=== PATIENT | female | born 1990 | race Caucasian/White ===

== ENCOUNTER 2017-10-30 15:48 | Emergency (ER) | payer MEDICAID, SELFPAY ==
[2017-10-30 15:49] VITALS: BP 134/77; PULSE 112; RESP 16; TEMP 37.2; O2SAT 99; BMI 19.1
--- NOTE | 2017-10-30 16:09 | ED.DCSUM_ITS ---
- ER Visit Summary Date of Service: 10/30/17 Chief Complaint: Sore throat and nausea History of Present Illness: The patient is a 27 F with sore throat and nausea for the past 2 days. Patient states it feels like prior bouts of strep throat. She has no known exposure to strep throat. She denies fever. She denies possibility of with a history of tubal ligation. Physical Examination: Vital signs reveal blood pressure of 134/77, temperature 99.0, heart rate 112, respiratory rate 16, pulse ox 99% on room air. Patient sitting in the lin chair. She is in no acute distress and speaks with a strong voice. Head neck examination does reveal 3+ tonsils. No exudate is noted. Uvula is midline. She does have bilateral anterior cervical lymphadenopathy. Heart is regular rate and rhythm. Lung sounds are clear. Abdomen is soft nontender. Test Results: Rapid strep is positive Emergency Department Course and Treatment: Patient has elected for IM injection of antibiotics. Should be given Bicillin LA. She is cleared to return to work 24 hours after antibiotics. Treatment Plan: [] Disposition: Discharge Impression: Strep pharyngitis This note was generated with [employer] dictation software. It may contain incorrect words, spelling, and punctuation that were not noted in review of the chart prior to signing ED Disposition - Plan for ED Patient: Chief Complaint: Sore Throat Referrals: NOT,DEFINED [NON-STAFF] -
[2017-10-30] MEDS: Ondansetron ODT 4 MG Tablet PO (16:34)
[2017-10-30] MEDS: Naproxen 500 MG Tablet PO (16:34)
--- NOTE | 2017-10-30 16:49 | ED.RN ---
RICCI, FROM LAB CALLED, PT HAS POSITIVE STREP. NOTE LEFT FOR DR. BRANDON.
--- NOTE | 2017-10-30 17:17 | ED.DEP ---
ED Disposition - Plan for ED Patient: Disposition: Home or Assisted Living Chief Complaint: Sore Throat Instructions: ED Strep Pharyngitis Conf Prescriptions: Ondansetron [Zofran Odt] 4 mg PO Q8H PRN PRN #10 tablet PRN Reason: Nausea
[2017-10-30] MEDS: Penicillin G Benzathine 1.2 MU/2 ML Syringe IM (17:25)
[2017-10-30 17:26] VITALS: BP 108/79; PULSE 62; RESP 15; O2SAT 98
== END 2017-10-30 17:28 | disposition home or self-care (01) ==
PROVIDERS: Emergency Provider Emergency Medicine
DX: J02.0 Streptococcal pharyngitis (principal)
CPT/HCPCS: 87880; 99283

== ENCOUNTER 2018-09-28 13:19 | Observation (INO) | payer SELFPAY ==
[2018-09-28] VITALS (8 sets, daily range): BP systolic 107–129; BP diastolic 67–82; PULSE 98–122; RESP 16–20; TEMP 36.4–39.3; O2SAT 98–100; BMI 21.2; BMI 21.1
--- NOTE | 2018-09-28 12:15 | APP_PTH ---
PATIENT: BRITNEY TYSON LOC: [facility]3 U#:[id number] AGE/SX: 27/F ROOM: [facility]313 RE09/28/[address]: Dr. Holland Bowen MD : 1990 BED: 1 DIS: 09/29/2018 SPEC #: [id number] RECD: 09/29/18 07:21 STATUS: DINORA SNIDER #: [id number] DIANELYS: 09/28/18 12:[address]: Holland Bowen DEPT: SURGICAL PATHOLOGY RECD BY: Mohsen Lin ENTERED: 09/29/18 09:36 SP TYPE: APPENDIX OTHR DR: No Primary Care Phys Tissues: Appendix, NOS Procedures: Surgery Specimen Level III HEADER OPERATION: Laparoscopic, appendectomy PRE-OP DIAGNOSIS: Sepsis right lower quadrant pain TISSUE SUBMITTED: Appendix MICROSCOPIC DIAGNOSIS Appendix: Appendix, no pathologic diagnosis. See comment. ZARA:leobardo 10/01/18 COMMENT The entire appendix is examined. No evidence of acute inflammation in the lumen or appendicular wall. MICROSCOPIC DESCRIPTION Slides are reviewed. GROSS DESCRIPTION Received is one container labeled with the patient's name and designated appendix. The specimen consists of a vermiform appendix measuring 5.5 cm in length and 0.4 cm in average diameter. No gross perforations are evident and serial sections do not reveal mass lesions. Enrollment Clerk sections are submitted in one cassette. / AM:rg 09/29/18 The rest of the specimen is submitted in one more cassette, cassette #2. / SJ:leobardo 09/30/18 TC:4 CPT: 64833
--- NOTE | 2018-09-28 13:48 | CT_ITS ---
STUDY: CT ABDOMEN AND PELVIS WITH CONTRAST REASON FOR EXAM: Female, 27 years old. Right sided pain RADIATION DOSAGE (If Supplied By Facility): CTDIvol = ( 8.40 ) mGy, DLP = ( 350.29 ) mGycm TECHNIQUE: Transaxial images were obtained from the dome of the diaphragm to the symphysis pubis without oral contrast. Isovue 300 80 IV was administered. Sagittal and coronal images were reconstructed. Individualized dose optimization techniques were used for this CT. COMPARISON: None. FINDINGS: The visualized lung bases are unremarkable. The visualized portions of the heart are within normal limits. Normal liver. Normal gallbladder and extrahepatic biliary system. Normal spleen. Normal pancreas. Normal bilateral adrenal glands. There is a questionable cortical 1.5 cm subtle hypoattenuated area within the posterior cortex of the right kidney. Normal left kidney. Normal visualized stomach. Normal small intestine. Fecal retention in the proximal colon. The appendix is visualized and appears normal. Normal abdominal aorta. Normal inferior vena cava. Normal retroperitoneum. Possible trace fluid in the Morison's pouch. Normal urinary bladder. Endometrial thickening/fluid in the uterus. Left adnexal 2.6 cm cystic lesion. Trace pelvic free fluid. Small fatty umbilical hernia. Normal osseous structures. CT/Abdomen/Pelvis W IV Cont ONLY IMPRESSION: Fecal retention in the proximal colon. Small fatty umbilical hernia. Left adnexal cystic lesion. Questionable subtle right renal cortical lesion. Correlate with a ultrasound if clinically indicated. Trace pelvic fluid. Trace fluid in the Caballero's pouch. Electronically Signed: Sean Holden DO at 15:35 EDT Tel [phone], Service support ,
--- NOTE | 2018-09-28 13:49 | ED.VISSUMM ---
- ER Visit Summary Date of Service: 09/28/18 Chief Complaint: Abdominal pain History of Present Illness: The patient is a 27 F with history of x3, tubal ligation, presents with 12-16 hours of right lower quadrant abdominal pain with nausea and one episode of vomiting. She has no vaginal discharge, no bleeding. She has no dyspareunia. Her last menstrual cycle was 2 days ago. She denies any fever chills or back pain. She has no dysuria hematuria urgency or frequency. She denies any chest pain shortness of breath. Pain is mild to moderate, sharp and stabbing in the right lower quadrant. Physical Examination: Vitals reviewed, tachycardic Patient appears in some distress.. Moist mucous membranes, no obvious facial deformity No C-spine tenderness supple neck. Regular rate and rhythm without any obvious murmurs Clear lungs bilaterally speaking in full sentences without any obvious respiratory distress Abdomen soft with right lower quadrant tenderness. Most of the pain is at McBurney's. There is no guarding or rebound Pelvic exam reveals no discharge, there is no cervical motion tenderness. Most the tenderness is higher than the adnexa, although she has slight adnexal tenderness. Moves all extremities without any difficulty or pain. Skin does not show any obvious rashes or lesions, no trauma. Alert oriented ?3 with no gross focal deficit Emergency Department Course and Treatment: There is difficult to assess clinically if this was pelvic or abdominal etiology, based on exam it seems like most of the pain is higher than the adnexa near the appendix region. I will proceed with a CT of the abdomen, there is possibility of PID as well as ovarian torsion or ovarian cyst, however at this time I believe the most probable cause is appendicitis, she does not appear in significant distress and does not have significant tenderness when I palpate her ovary on the exam. The CT was unremarkable for the appendix, however in reviewing it this may be an appendicolith present and patient was reevaluated and has pain at McBurney's. Discussed patient with Dr. Bowen, she requests hospital surgeon she has a PCP, and patient will be observed in the hospital. Antibiotics will be started and patient will get a repeat CT in the morning with p.o. and IV contrast Disposition: Admit for observation Impression: Abdominal pain This note was generated with [employer] dictation software. It may contain incorrect words, spelling, and punctuation that were not noted in review of the chart prior to signing ED Disposition - Plan for ED Patient: Referrals: Care Physician,No Primary [Primary Care Provider] -
[2018-09-28 13:58] LABS: Absolute Lymphocyte Count 1.14 X10^3/ul (0.83-4.51); Absolute Neutrophil Count 11.8 X10^3/uL (2.0-7.7); Basophil# 0.02 X10^3/uL; Basophil% 0.1 % (0-1); Eosinophil# 0.09 X10^3/uL; Eosinophils% 0.6 % (0-5); Hematocrit 31.9 % (37-47); Hemoglobin 10.2 g/dl (12.0-15.0); Lymphocyte # 1.14 X10^3/ul (4.0); Lymphocyte % 7.9 % (19-41); Mean Corpuscular Hgb 25.5 pg (27.0-32.0); Mean Corpuscular Volume 79.8 fL (81-99); Mean Platelet Vol. 12.1 fl (6.2-12.0); Monocyte# 1.32 X10^3/uL; Monocyte% 9.2 % (0-10); Neutrophil # 11.76 X10^3/uL (2.7-7.7); POSITIVE COUNT NO; POSITIVE DIFFERENTIAL NO; POSITIVE MORPHOLOGY NO; Platelet Count 292 K/mm3 (150-450); RBC Distribution Width CV 18.7 % (11.6-14.6); RBC Distribution Width SD 53.3 fl (35.1-43.9); White Blood Count 14.4 K/mm3 (4.4-11.0)
[2018-09-28 14:09] LABS: ALB/GLOB Ratio 0.9 RATIO (0.9-2.4); AST(SGOT) 10 U/L (15-37); Alanine Aminotransfer ALT/SGPT 15 U/L (13-56); Albumin, Serum 3.5 g/dL (3.2-5.0); Alkaline Phosphatase 76 U/L (45-117); Anion Gap 8 (5-15); BUN 7 mg/dL (7-18); BUN/Creat Ratio 9.4 RATIO (10-20); Calcium,Total 8.2 mg/dL (8.5-10.1); Chloride 106 mmol/L (98-107); Creatinine, Serum 0.75 mg/dL (0.55-1.02); EST Glomerular Filtration Rate 99 mL/min (>60); Est Glom Filt Rate - Afr Amer 120 mL/min (>60); Estimated Creatinine Clearance 106.41 ml/min; Glucose 102 mg/dL (74-106); Potassium 3.7 mmol/L (3.5-5.1); Protein, Total 7.5 g/dL (6.4-8.2); Sodium Level 136 mmol/L (136-145)
[2018-09-28] MEDS: Ondansetron 4 MG/2 ML Vial IV ×2 (14:14→22:25)
[2018-09-28] MEDS: 0.9% Normal Saline 1,000 ML 1000 ML IV (14:14)
[2018-09-28] MEDS: Morphine 4 MG/ML Syringe IV (14:14)
[2018-09-28 14:18] LABS: Pregnancy, Serum, hCG Quali. NEGATIVE Negative (0-9 Nonpreg)
[2018-09-28 15:00] LABS: Mucous, Urine 0 SEEN /hpf (<or=2+)
[2018-09-28 15:01] LABS: Color, Urine Yellow (Yellow); Glucose, Dipstick Normal (Normal); Ketone-Dipstick Negative (Negative); Leukocyte Esterase-Dipstick 500 /ul (Negative); Nitrite-Dipstick Positive (Negative); Occult Blood-Urine 25 /ul (Negative); Protein-Dipstick 100 mg/dl (Negative); Urine Bilirubin Dipstick Negative (Negative); Urine Clarity Sl. Cloudy (Clear); Urine Urobilinogen Normal (Normal)
[2018-09-28 15:15] LABS: White Blood Cells 50-100 SEEN /hpf (0-5)
[2018-09-28 15:16] LABS: Amorphous Sediment 1+ URATE; Bacteria 1+ /hpf (None Seen); Red Blood Cells-Urine 5-10 SEEN /hpf (0-5); Squamous Epithelial Cells - UA 5-10 SEEN /hpf (5-10)
--- NOTE | 2018-09-28 15:59 | NURSING ---
MED SURG UTI, POSSIBLE APPENDICITIS [facility]
--- NOTE | 2018-09-28 16:01 | HP.PCM_ITS ---
Problem List (1) UTI (urinary tract infection) Status: Acute Qualifiers: Urinary tract infection type: site unspecified (2) Appendicitis Status: Acute Qualifiers: Appendicitis type: unspecified Qualified Code(s): K37 - Unspecified appendicitis History of Present Illness Date of Admission: 09/28/18 The patient is a 27 year old F presented to ER with right lower quadrant pain. This started last night. Pain is only RLQ, no dysuria. She has had nausea and vomitting. No fever or chills. Past Medical History Allergies No Known Allergies Allergy (Verified 09/28/18 13:20) Home Medications: Ambulatory Orders Medication Instructions Recorded NK 09/28/18 Surgical History: - - C section x3 Smoking Status: Current every day smoker - *Family History Maternal History Items: No pertinent history Review of Systems Constitutional: Reports: Anorexia. Denies: Chills, Fever HEENT: Denies: Difficulty Swallowing Cardiovascular: Denies: Chest Pain Respiratory: Denies: Cough, Shortness of Breath Gastrointestinal: Reports: Abdominal Pain - RLQ, Nausea, Vomiting Genitourinary: Denies: Dysuria, Hematuria, Hesitancy Musculoskeletal: Denies: Joint Tenderness Skin: Denies: Dryness Neurological: Denies: Difficulty swallowing Psychiatric: Denies: Anxiety Hematologic/ Lymphatic: Denies: Anemia VTE Information - Inpt Only VTE Present on Admission: No VTE Mechan Device Prophylaxis: SCD's Patient Problems: Active and Suspected Problems UTI (urinary tract infection) (Acute) Appendicitis (Acute) - Physical Exam General: Alert, Oriented x3, Cooperative Neck: No JVD Lungs: Normal air movement Cardiovascular: Regular rate, Regular Rhythm Abdomen: Soft, Non-Distended, Tender - RLQ tender to palpation, no guarding Musculoskeletal: No Muscle Wasting Neurological: Cranial nerves II-XII grossly intact Psych/Mental Status: Normal Affect Vital Signs Temp Pulse Resp BP Pulse Ox 99.9 F H 105 H 16 129/82 H 100 09/28/18 15:38 09/28/18 15:38 09/28/18 15:38 09/28/18 15:38 09/28/18 15:38 Oxygen Delivery Method Room Air Weight: 131 lb 9.855 oz Body Mass Index (BMI) 21.2 Laboratory Tests Past 24 Hrs 09/28/18 09/28/18 09/28/18 13:35 13:35 13:35 WBC 14.4 H RBC 4.00 L Hgb 10.2 L Hct 31.9 L MCV 79.8 L MCH 25.5 L MCHC 32.0 RDW 18.7 H RDW Differential 53.3 H Plt Count 292 MPV 12.1 H Immature Gran % (Auto) 0.200 Neut % (Auto) 82.0 H Lymph % (Auto) 7.9 L [place] % (Auto) 9.2 Eos % (Auto) 0.6 Baso % (Auto) 0.1 Absolute Neuts (auto) 11.8 H Absolute Lymphs (auto) 1.14 Total Counted Not Reportable Sodium 136 Potassium 3.7 Chloride 106 Carbon Dioxide 22.0 Anion Gap 8 BUN 7 Creatinine 0.75 Estim Creat Clear Calc 106.41 Est GFR (MDRD) Af Amer 120 Est GFR (MDRD) Non-Af 99 BUN/Creatinine Ratio 9.4 L Glucose 102 Calcium 8.2 L Total Bilirubin 0.50 AST 10 L ALT 15 Alkaline Phosphatase 76 Total Protein 7.5 Albumin 3.5 Globulin 4.0 Albumin/Globulin Ratio 0.9 Serum , Qual NEGATIVE Urine Color Urine Clarity Urine pH Ur Specific [place] Urine Protein Urine Glucose (UA) Urine Ketones Urine Occult Blood Urine Nitrite Urine Bilirubin Urine Urobilinogen Ur Leukocyte Esterase Urine RBC Urine WBC Ur Squamous Epith Cells Amorphous Sediment Urine Bacteria Urine Mucus 09/28/18 14:50 WBC RBC Hgb Hct MCV MCH MCHC RDW RDW Differential Plt Count MPV Immature Gran % (Auto) Neut % (Auto) Lymph % (Auto) [place] % (Auto) Eos % (Auto) Baso % (Auto) Absolute Neuts (auto) Absolute Lymphs (auto) Total Counted Sodium Potassium Chloride Carbon Dioxide Anion Gap BUN Creatinine Estim Creat Clear Calc Est GFR (MDRD) Af Amer Est GFR (MDRD) Non-Af BUN/Creatinine Ratio Glucose Calcium Total Bilirubin AST ALT Alkaline Phosphatase Total Protein Albumin Globulin Albumin/Globulin Ratio Serum , Qual Urine Color Yellow Urine Clarity Sl. Cloudy Urine pH 6.0 Ur Specific [place] 1.010 Urine Protein 100 H Urine Glucose (UA) Normal Urine Ketones Negative Urine Occult Blood 25 H Urine Nitrite Positive H Urine Bilirubin Negative Urine Urobilinogen Normal Ur Leukocyte Esterase 500 H Urine RBC 5-10 SEEN Urine WBC 50-100 SEEN Ur Squamous Epith Cells 5-10 SEEN Amorphous Sediment 1+ URATE Urine Bacteria 1+ Urine Mucus 0 SEEN Clinical Impression(s) from Imaging Studies Abdomen/Pelvis CT 09/28/18 13:48 IMPRESSION: Fecal retention in the proximal colon. Small fatty umbilical hernia. Left adnexal cystic lesion. Questionable subtle right renal cortical lesion. Correlate with a ultrasound if clinically indicated. Trace pelvic fluid. Trace fluid in the Caballero's pouch. Electronically Signed: Sean Holden DO at 15:35 EDT Tel [phone], Service support , Assessment/Plan All Active Problems UTI (urinary tract infection) (Acute) Appendicitis (Acute) 27 yo F with RLQ pain 1. Patient has story consistent with acute appendicitis. CT was read as normal appendix but I believe I see an appendicolith and fluid filled appendix. UA did show leuk est and nitrites but was contaminated with Epi cells. I will admit the patient on abx in case this is a UTI but the patient has no symptoms of UTI. Will repeat CT with PO contrast in the morning and take to surgery tomorrow if CT worsens. Holland Bowen MD
[2018-09-28] MEDS: Morphine 2 MG/ML Syringe IV ×3 (17:19→22:33)
[2018-09-28] MEDS: Dextrose 5%-Lactated Ringers 1,000 ML 125 ML IV (19:00)
[2018-09-28] MEDS: Docusate Sodium 100 MG Capsule PO (22:13)
[2018-09-28] MEDS: Acetaminophen 325 MG Tablet 650 MG PO (22:52)
--- NOTE | 2018-09-28 23:09 | PCM.PN.BLA ---
Progress Note I was called to the bedside due to the patient's vital signs. Patient still complaining of right abdominal 10 out of 10 pain. She is now febrile at 103 degrees and tachycardic at 122. I believe she is either having a torsed ovary or acute appendicitis. I did consent her for exploratory laparoscopy with possible oophorectomy and either way I will be performing an appendectomy. Patient understands the risks including but not limited to bleeding, infection, perforation of the bowels, injury to surrounding organs. I have called the operative team in for laparoscopy. Holland Bowen MD Pager: [facility] [address] [place] [address], [address] [place] [address] Office:
--- NOTE | 2018-09-28 23:55 | NURSING ---
Hand off given to Georgina in OR. They are ready for pt. Charge nurse Fely leaving floor at this time taking pt to OR.
[2018-09-29] VITALS (10 sets, daily range): BP systolic 96–112; BP diastolic 51–73; PULSE 75–115; RESP 16–18; TEMP 36.5–37.4; O2SAT 97–99
[2018-09-29 00:05] LABS: International Normalized Ratio 1.2; Prothrombin Time (Protime)PT. 15.1 SECONDS (11.7-14.9)
[2018-09-29 00:06] LABS: Partial Thromboplast Time 41.5 Seconds (24.1-36.2)
[2018-09-29] MEDS: Bupiv/Epi 0.25% 30 ML Vial (00:30)
--- NOTE | 2018-09-29 00:55 | PCM.PN.BLA ---
Progress Note Patient was taken to surgery for exploratory laparoscopy. Patient's ovary appeared normal with no torsion. Fluid in the pelvis was serous with no purulence. Appendix appeared normal and was removed. Gallbladder appeared normal as well. Bowels were appeared normal. I will keep her on antibiotics and start clear liquid diet. Await blood and urine cultures. Check morning labs. Holland Bowen MD Pager: [facility] [address] [place] [address], [address] [place] [address] Office:
--- NOTE | 2018-09-29 00:59 | OP.PCM_ITS ---
Problem List (1) UTI (urinary tract infection) Status: Acute Qualifiers: Urinary tract infection type: site unspecified (2) Appendicitis Status: Acute Qualifiers: Appendicitis type: unspecified Qualified Code(s): K37 - Unspecified appendicitis Report of Operation Date of Procedure: 09/29/18 Pre-Operative Diagnosis: Right lower quadrant pain and sepsis Post-Operative Diagnosis: 1. Normal right ovary. 2. Normal appendix. 3. Normal bowel Surgery/Procedure Performed:: Exploratory laparoscopy with appendectomy Description of Surgical Findings:: The patient had normal-appearing right ovary as well as normal-appearing appendix. The bowel appeared normal as did the gallbladder. Specimen's removed: Appendix Description of Procedure: The patient was brought into the operating room and general anesthesia was induced. The left arm was tucked and the abdomen was prepped and draped in usual sterile fashion. A small midline incision was made superior to the umbilicus and deepened to the level of the fascia. The fascia was elevated and incised. The peritoneum was also elevated and incised. A finger sweep was performed and a balloon trocar was placed into the abdomen and inflated. The abdomen was insufflated to 15 mmHg and the camera was inserted and the abdomen was inspected for any injuries upon entering the abdomen. There were none. The patient was placed in Trendelenburg position and a 5 mm ports placed in the left lower quadrant and suprapubic areas under direct visualization. Next using atraumatic bowel graspers the appendix was identified. The appendix appeared normal. The right ovary was inspected and there was no element of torsion and it appeared healthy and normal. Fluid was suctioned from the pelvis which was serous with no purulence. The uterus and bladder appeared normal. The bowel also appeared normal. The appendix was grasped and elevated and a harmonic scalpel was used to take down the mesoappendix. A stapler was used to come across the base of the appendix. The appendix was then placed in Endo Catch bag and removed through the umbilical incision. The staple line was inspected and found to be hemostatic and intact. The 2 5 mm ports are removed under direct visualization. The balloon trocar was deflated and removed and all the air was removed from the abdomen. The umbilical incision fascia was closed with an 0 Vicryl [id number] suture. The incisions were then irrigated with saline and dried. Local anesthetic was injected into the incision sites. The skin incisions were then closed with interrupted 4-0 Monocryl suture and Steri- Strips. Bandages were applied and the patient was awoken and taken to PACU in stable condition. Patient tolerated the procedure well. - Admit VTE Documentation VTE Mechan Device Prophylaxis: SCD's
--- NOTE | 2018-09-29 01:15 | NURSING ---
Dr Bowen presented to unit to report surgery findings. Lactic acid ordered by and advised to monitor vitals. Did not feel the need for a CXR at this time. To notify Dr if SBP <90. Continue zosyn.
[2018-09-29 02:23] LABS: Lactic Acid 0.8 mmol/L (0.4-2.0)
[2018-09-29] MEDS: Dextrose 5%-Lactated Ringers 1,000 ML 125 ML IV ×2 (03:42→11:35)
[2018-09-29] MEDS: Ketorolac 15 MG/ML Vial IV ×2 (05:45→13:14)
[2018-09-29] MEDS: 0.9% NaCl Peripheral Flush Adult/Peds IV ×2 (05:45→13:14)
[2018-09-29 06:35] LABS: ALB/GLOB Ratio 0.9 RATIO (0.9-2.4); AST(SGOT) 29 U/L (15-37); Alanine Aminotransfer ALT/SGPT 31 U/L (13-56); Alkaline Phosphatase 84 U/L (45-117); Anion Gap 12 (5-15); BUN 6 mg/dL (7-18); BUN/Creat Ratio 6.3 RATIO (10-20); Calcium,Total 7.7 mg/dL (8.5-10.1); Chloride 112 mmol/L (98-107); Creatinine, Serum 0.95 mg/dL (0.55-1.02); EST Glomerular Filtration Rate 75 mL/min (>60); Est Glom Filt Rate - Afr Amer 91 mL/min (>60); Estimated Creatinine Clearance 84.01 ml/min; Globulin 3.5 g/dL (2.2-4.2); Glucose 173 mg/dL (74-106); Potassium 4.4 mmol/L (3.5-5.1); Protein, Total 6.5 g/dL (6.4-8.2); Sodium Level 141 mmol/L (136-145)
[2018-09-29 06:45] LABS: Absolute Lymphocyte Count 0.59 X10^3/ul (0.83-4.51); Absolute Neutrophil Count 13.1 X10^3/uL (2.0-7.7); Basophil# 0.01 X10^3/uL; Basophil% 0.1 % (0-1); Hematocrit 30.8 % (37-47); Hemoglobin 9.5 g/dl (12.0-15.0); Lymphocyte # 0.59 X10^3/ul (4.0); Lymphocyte % 4.2 % (19-41); Mean Corp Hgb Conc 30.8 g/gl (32-36); Mean Corpuscular Hgb 24.9 pg (27.0-32.0); Mean Corpuscular Volume 80.8 fL (81-99); Mean Platelet Vol. 12.6 fl (6.2-12.0); Monocyte# 0.32 X10^3/uL; Monocyte% 2.3 % (0-10); Neutrophil # 13.12 X10^3/uL (2.7-7.7); Neutrophil % 93.2 % (47-70); Platelet Count 255 K/mm3 (150-450); RBC Distribution Width CV 19.2 % (11.6-14.6); Red Blood Count 3.81 M/mm3 (4.2-5.4); White Blood Count 14.1 K/mm3 (4.4-11.0)
[2018-09-29 06:51] LABS: Differential Indicated SCAN CRITERIA MET; POSITIVE COUNT NO; POSITIVE DIFFERENTIAL YES; POSITIVE MORPHOLOGY NO
--- NOTE | 2018-09-29 08:30 | PN.SURG_ITS ---
Patient Problems: Active and Suspected Problems UTI (urinary tract infection) (Acute) Appendicitis (Acute) Subjective: Patient today reports that she is having some slight left lower quadrant pain. Her right lower quadrant pain has improved. She is not having any nausea or vomiting. Her fever has broken. - Physical Exam General: Alert, Oriented x3 Lungs: Normal air movement Cardiovascular: Regular rate, Regular Rhythm Abdomen: Soft, Non-Distended Vital Signs Temp Pulse Resp BP Pulse Ox 97.7 F L 80 18 96/57 L 98 09/29/18 05:45 09/29/18 05:45 09/29/18 05:45 09/29/18 05:45 09/29/18 05:45 Oxygen Delivery Method Room Air Weight: 131 lb 9.855 oz Body Mass Index (BMI) 21.1 Intake and Output for Last 24 Hours 09/27/18 09/28/18 09/29/18 22:59 23:59 23:59 Intake Total 1637 / 1637 Output Total 700 / 700 Balance 937 / 937 Laboratory Tests Past 24 Hrs 09/28/18 09/28/18 09/28/18 13:35 13:35 13:35 WBC 14.4 H RBC 4.00 L Hgb 10.2 L Hct 31.9 L MCV 79.8 L MCH 25.5 L MCHC 32.0 RDW 18.7 H RDW Differential 53.3 H Plt Count 292 MPV 12.1 H Immature Gran % (Auto) 0.200 Neut % (Auto) 82.0 H Lymph % (Auto) 7.9 L [place] % (Auto) 9.2 Eos % (Auto) 0.6 Baso % (Auto) 0.1 Absolute Neuts (auto) 11.8 H Absolute Lymphs (auto) 1.14 Total Counted Not Reportable PT INR APTT Sodium 136 Potassium 3.7 Chloride 106 Carbon Dioxide 22.0 Anion Gap 8 BUN 7 Creatinine 0.75 Estim Creat Clear Calc 106.41 Est GFR (MDRD) Af Amer 120 Est GFR (MDRD) Non-Af 99 BUN/Creatinine Ratio 9.4 L Glucose 102 Lactic Acid Calcium 8.2 L Total Bilirubin 0.50 AST 10 L ALT 15 Alkaline Phosphatase 76 Total Protein 7.5 Albumin 3.5 Globulin 4.0 Albumin/Globulin Ratio 0.9 Serum , Qual NEGATIVE Urine Color Urine Clarity Urine pH Ur Specific [place] Urine Protein Urine Glucose (UA) Urine Ketones Urine Occult Blood Urine Nitrite Urine Bilirubin Urine Urobilinogen Ur Leukocyte Esterase Urine RBC Urine WBC Ur Squamous Epith Cells Amorphous Sediment Urine Bacteria Urine Mucus 09/28/18 09/28/18 09/29/18 14:50 23:40 01:46 WBC RBC Hgb Hct MCV MCH MCHC RDW RDW Differential Plt Count MPV Immature Gran % (Auto) Neut % (Auto) Lymph % (Auto) [place] % (Auto) Eos % (Auto) Baso % (Auto) Absolute Neuts (auto) Absolute Lymphs (auto) Total Counted PT 15.1 H INR 1.2 APTT 41.5 H Sodium Potassium Chloride Carbon Dioxide Anion Gap BUN Creatinine Estim Creat Clear Calc Est GFR (MDRD) Af Amer Est GFR (MDRD) Non-Af BUN/Creatinine Ratio Glucose Lactic Acid 0.8 Calcium Total Bilirubin AST ALT Alkaline Phosphatase Total Protein Albumin Globulin Albumin/Globulin Ratio Serum , Qual Urine Color Yellow Urine Clarity Sl. Cloudy Urine pH 6.0 Ur Specific [place] 1.010 Urine Protein 100 H Urine Glucose (UA) Normal Urine Ketones Negative Urine Occult Blood 25 H Urine Nitrite Positive H Urine Bilirubin Negative Urine Urobilinogen Normal Ur Leukocyte Esterase 500 H Urine RBC 5-10 SEEN Urine WBC 50-100 SEEN Ur Squamous Epith Cells 5-10 SEEN Amorphous Sediment 1+ URATE Urine Bacteria 1+ Urine Mucus 0 SEEN 09/29/18 09/29/18 05:32 05:32 WBC 14.1 H RBC 3.81 L Hgb 9.5 L Hct 30.8 L MCV 80.8 L MCH 24.9 L MCHC 30.8 L RDW 19.2 H RDW Differential 54.0 H Plt Count 255 MPV 12.6 H Immature Gran % (Auto) 0.200 Neut % (Auto) 93.2 H Lymph % (Auto) 4.2 L [place] % (Auto) 2.3 Eos % (Auto) 0.0 Baso % (Auto) 0.1 Absolute Neuts (auto) 13.1 H Absolute Lymphs (auto) 0.59 L Total Counted Not Reportable PT INR APTT Sodium 141 Potassium 4.4 Chloride 112 H Carbon Dioxide 17.0 L Anion Gap 12 BUN 6 L Creatinine 0.95 Estim Creat Clear Calc 84.01 Est GFR (MDRD) Af Amer 91 Est GFR (MDRD) Non-Af 75 BUN/Creatinine Ratio 6.3 L Glucose 173 H Lactic Acid Calcium 7.7 L Total Bilirubin 0.50 AST 29 ALT 31 Alkaline Phosphatase 84 Total Protein 6.5 Albumin 3.0 L Globulin 3.5 Albumin/Globulin Ratio 0.9 Serum , Qual Urine Color Urine Clarity Urine pH Ur Specific [place] Urine Protein Urine Glucose (UA) Urine Ketones Urine Occult Blood Urine Nitrite Urine Bilirubin Urine Urobilinogen Ur Leukocyte Esterase Urine RBC Urine WBC Ur Squamous Epith Cells Amorphous Sediment Urine Bacteria Urine Mucus Medical Necessity - Tobacco Use Smoking Status: Heavy Smoker (>10/day) Assessment/Plan All Active Problems UTI (urinary tract infection) (Acute) Appendicitis (Acute) 27-year-old female status post lap appendectomy 1. Patient was taken for laparoscopy overnight. Her ovary and appendix was normal but I did remove her appendix. The patient was continued on antibiotics and her fever has broken. She no longer has tachycardia. She says her right lower quadrant pain has improved. This may be related to UTI. Continue antibiotics and advance diet as tolerated. Holland Bowen MD Pager: [facility] [address] [place] [address], [address] [place] [address] Office:
[2018-09-29] MEDS: Acetaminophen 325 MG Tablet 650 MG PO (09:25)
[2018-09-29] MEDS: Docusate Sodium 100 MG Capsule PO (09:31)
--- NOTE | 2018-09-29 13:32 | DCINST_ITS ---
Discharge Diet: Light diet - advance as tolerated Discharge Activity: May Shower Lifting Restrictions: 20 lbs for 2 weeks Call your doctor if your incision/area has: Continuous Slow Oozing, Sudden Increased Bleeding, Increased Pain/ Swelling, Increased Redness, Foul Smelling Discharge Call your doctor if you observe: Fever of 101 or Higher, Inability to urinate Suture Line Care: Avoid Pulling/Pushing, Avoid Pinching/Bending Additional Dressing/Incision Instructions:: Keep dressing clean and dry. Change or remove dressing in 2 days. Leave steri strips for 1 week. May protect with a gauze bandaid. Medications to take at Discharge Ciprofloxacin [Cipro] 500 mg PO BID 10 Days #20 tablet 09/29/18 Oxycodone HCl/Acetaminophen [Percocet 5/325] 1 - 2 tablet PO Q4H PRN PRN 7 Days #20 tablet 09/29/18 Allergies/Adverse Reactions: Allergies cat dander Allergy (Verified 09/28/18 17:10) Itching The following prescriptions were given: Oxycodone HCl/Acetaminophen [Percocet 5/325] 1 - 2 tablet PO Q4H PRN PRN 7 Days #20 tablet PRN Reason: Pain Ciprofloxacin [Cipro] 500 mg PO BID 10 Days #20 tablet Primary Care Physician: Care Physician,No Primary [Primary Care Provider] - Test Results: Test results from this visit will be discussed in further detail at your follow- up appointment, if applicable. Please Follow Up With: Holland Bowen MD When: Please call to schedule 2 week follow up appointment. [phone]
--- NOTE | 2018-09-29 15:09 | CASEMGMT ---
Social Work Met with patient in room. Referral due to patient being self-pay. Patient reporting to have already completed Medicaid application with financial services. Patient reporting to be unable to afford medications through [facility]. Patient is agreeable to Rx's being sent to [facility]. [facility] reporting to have a cheaper private pay cost and a coupon was also able to be obtained for Cipro. [facility] call to [facility]. Cipro sent to [facility] pharmacy, patient notified and planning to cook pickled meat prescription from [employer] later today and to be able to afford the new cost. Support given. Patient plans to discharge to home with significant other. No further needs identified at this time. Alejandro PADILLA, ELENA
== END 2018-09-29 15:06 | disposition home or self-care (01) ==
LOC: ED 16:01 → MS3 16:14
PROVIDERS: Anesthesiology; Admitting Provider Surgery; Emergency Provider Emergency Medicine; Referring Provider Surgery; Visit Provider Surgery
PROC: 0DTJ4ZZ Resection of Appendix, Percutaneous Endoscopic Approach (ICD-10-PCS; CPT 44970; principal; 2018-09-28 12:15)
DX: N39.0 Urinary tract infection, site not specified (principal); R10.31 Right lower quadrant pain; F17.200 Nicotine dependence, unspecified, uncomplicated
CPT/HCPCS: 44970; 36415; 74177; 80053; 81001; 83605; 84703; 85025; 85610; 85730; 87040; 87086; 87088; 87186; 88304; 96361; 96365; 96366; 96367; 96375; 96376; 99218; 99282; 99406; J7030; Q9967; A4216; C1760; G0378; J2405

== ENCOUNTER 2019-05-21 03:44 | Emergency (ER) | payer SELFPAY ==
[2018-09-28 23:32] VITALS: BMI 21.1
[2019-05-21 03:45] VITALS: BP 129/100; PULSE 97; RESP 22; TEMP 36.5; O2SAT 100; BMI 20.5
--- NOTE | 2019-05-21 03:46 | ED.RN ---
CALLED FOR EKG PER RN REQUEST, NO OLD EKGS IN MUSE
[2019-05-21 03:47] VITALS: PULSE 100; RESP 28; O2SAT 100
[2019-05-21 04:09] VITALS: BP 143/98; PULSE 71; RESP 18; O2SAT 99
--- NOTE | 2019-05-21 04:43 | EKG12_ITS ---
Test Reason : CP Blood Pressure : / mmHG Vent. Rate : 095 BPM Atrial Rate : 095 BPM P-R Int : 140 ms QRS Dur : 092 ms QT Int : 366 ms P-R-T Axes : 065 060 072 degrees QTc Int : 459 ms Sinus rhythm with marked sinus arrhythmia Otherwise normal ECG Confirmed by ISIS TEJEDA, ANAY ([id number]), editor trade journal MARYA DIOP ([id number]) on 05/25/2019 9:25:12 AM Referred By: BB Confirmed By:ANAY MARINELLI MD
--- NOTE | 2019-05-21 04:45 | RAD_ITS ---
STUDY: X-RAY CHEST REASON FOR EXAM: Female, 28 years old. Chest pain. TECHNIQUE: Single AP portable view of the chest. COMPARISON: None. FINDINGS: The lungs are clear and expanded. There is no demonstrated pleural abnormality. Normal size heart. Normal mediastinum and yue. Normal visualized pulmonary arteries. Normal visualized aortic arch and descending thoracic aorta. Normal visualized thoracic spine. Normal visualized ribs, clavicles, and shoulders. There is no demonstrated abnormality of the visualized soft tissue structures of the upper abdomen. RAD/Chest 1 View (Portable) IMPRESSION: Normal x-ray examination of the chest. Electronically Signed: Love Rivera MD at 5:02 EDT , Service support ,
--- NOTE | 2019-05-21 04:45 | ED.DCSUM_ITS ---
History of Present Illness Chief Complaint: Chest Pain Informant: Patient Onset: Today - about 45 min prior to arrival Activity at onset: Rest - sitting reclined Timing: Continuous Quality: Sharp Location: Substernal - without radiation Current Severity: Severe Maximum Severity: Severe Worsened By: Breathing Associated Symptoms: Nausea, Vomiting, Dyspnea - due to painful breathing. Negative for: Diaphoresis, Cough, Fever, Palpitations Narrative: History is somewhat limited due to patient being very anxious and moaning throughout the evaluation. She looks uncomfortable. She states she was just resting when this started suddenly. She vomited afterwards, not before. Initially she was only complaining of discomfort in her chest but during the abdominal exam she was guarding in her epigastrium, and then indicated that yes, her upper abdomen was hurting along with all of this. She has taken no medications prior to coming to the emergency department. No recent long travel, history of DVT or PE, hemoptysis, she does not take control. Past Medical History - Allergies and Home Meds Allergies/Adverse Reactions: Allergies cat dander Allergy (Verified 09/28/18 17:10) Itching Primary Care Physician: Care Physician,No Primary [Primary Care Provider] - Surgical History: appendectomy, - - C section x3 Lives: Spouse/ Significant Other Smoking Status: Current every day smoker - Family History Maternal Family History: Reports: No pertinent history Review of Systems General: Reports: Malaise. Denies: Chills, Fever, Sweats Eyes: Denies: Visual changes - bilaterally, Diplopia ENT: Denies: Rhinorrhea, Sore throat Cardiovascular: Reports: Chest pain. Denies: Palpitations Respiratory: Reports: Dyspnea. Denies: Cough, Dyspnea on exertion Gastrointestinal: Reports: Abdominal pain, Nausea, Vomiting. Denies: Diarrhea, Melena, Hematochezia Genitourinary: Denies: Dysuria, Hematuria, Frequency Musculoskeletal: Denies: Neck pain, Back pain, Swelling, Extremity Pain Skin: Denies: Rash, Wounds Neurological: Denies: Headache, Weakness, Numbness Physical Exam Vital Signs/Narrative: Vital Signs Temp Pulse Resp BP Pulse Ox 05/21/19 04:09 71 18 143/98 H 99 05/21/19 03:47 100 28 H 100 05/21/19 03:45 97.7 F L 97 22 H 129/100 H 100 Inital Vital Signs reviewed: Yes General: Well nourished, Well developed, No Acute Distress Head: Normocephalic, Atraumatic Eyes: Perrl, EOMI ENT: Moist mucous membranes, No rhinorrhea Neck: Supple, Nontender, No lymphadenopathy Cardiovascular: Regular rate, Regular rhythm, No murmurs Respiratory: No distress, CTA bilaterally, Chest nontender Abdomen: Soft, Nondistended, Normal bowel sounds, No masses, Tender - diffusely, mostly epigastrium and RLQ, but tender everywhere. Negative for: Guarding, Rebound tenderness Back: Nontender, Normal Inspection Extremities: Nontender, No edema. Negative for: Calf Tenderness Skin: Normal color, No rash, No Trauma Neurological: Alert, Oriented x3, Cranial nerves II-XII grossly intact, Normal Strength, Normal Sensation Psychological: Tearful - anxious Diagnostic/Tx/Re-eval Impressions Chest X-Ray 05/21/19 04:45 IMPRESSION: Normal x-ray examination of the chest. Electronically Signed: Love Rivera MD at 5:02 EDT , Service support , Chest CTA 05/21/19 05:42 IMPRESSION: Normal CTA chest examination, without a demonstrated pulmonary embolism or arterial dissection. Electronically Signed: Love Rivera MD at 6:41 EDT , Service support , 05/21/19 04:45 Chest 1 View (Portable) [RAD] Stat 05/21/19 05:42 CTA Chest W/WO Contrast [CT] Stat Laboratory Results 05/21/19 05/21/19 05/21/19 03:52 03:52 03:52 WBC 14.6 H RBC 3.90 L Hgb 9.6 L Hct 29.8 L MCV 76.4 L MCH 24.6 L MCHC 32.2 RDW Std Deviation 56.4 H RDW Coeff of Carley 20.3 H Plt Count 605 H MPV 11.1 Immature Gran % (Auto) 0.500 Neut % (Auto) 52.2 Lymph % (Auto) 36.8 [place] % (Auto) 7.2 Eos % (Auto) 2.8 Baso % (Auto) 0.5 Absolute Neuts (auto) 7.6 Absolute Lymphs (auto) 5.36 H Nucleated RBC % 0 Differential Comment SCANNED Platelet Estimate MOD INC Hypochromasia 2+ Microcytosis 2+ Macrocytosis 1+ Target Cells RARE Ovalocytes 1+ Schistocytes RARE D-Dimer Quant (PE/DVT) 0.62 H* Sodium 140 Potassium 3.5 Chloride 107 Carbon Dioxide 24.0 Anion Gap 9 BUN 9 Creatinine 0.90 Estim Creat Clear Calc 85.38 Est GFR (MDRD) Af Amer 97 Est GFR (MDRD) Non-Af 80 BUN/Creatinine Ratio 10.0 Glucose 123 H Calcium 8.4 L Total Bilirubin 0.10 L AST 11 L ALT 16 Alkaline Phosphatase 81 Troponin I < 0.015 Total Protein 7.5 Albumin 3.4 Globulin 4.1 Albumin/Globulin Ratio 0.8 L Lipase 153 Urine Color Urine Clarity Urine pH Ur Specific [place] Urine Protein Urine Glucose (UA) Urine Ketones Urine Occult Blood Urine Nitrite Urine Bilirubin Urine Urobilinogen Ur Leukocyte Esterase Urine RBC Urine WBC Ur Squamous Epith Cells Urine Bacteria Urine Mucus Urine Test 05/21/19 05:40 WBC RBC Hgb Hct MCV MCH MCHC RDW Std Deviation RDW Coeff of Carley Plt Count MPV Immature Gran % (Auto) Neut % (Auto) Lymph % (Auto) [place] % (Auto) Eos % (Auto) Baso % (Auto) Absolute Neuts (auto) Absolute Lymphs (auto) Nucleated RBC % Differential Comment Platelet Estimate Hypochromasia Microcytosis Macrocytosis Target Cells Ovalocytes Schistocytes D-Dimer Quant (PE/DVT) Sodium Potassium Chloride Carbon Dioxide Anion Gap BUN Creatinine Estim Creat Clear Calc Est GFR (MDRD) Af Amer Est GFR (MDRD) Non-Af BUN/Creatinine Ratio Glucose Calcium Total Bilirubin AST ALT Alkaline Phosphatase Troponin I Total Protein Albumin Globulin Albumin/Globulin Ratio Lipase Urine Color Yellow Urine Clarity Sl. Cloudy Urine pH 7.0 Ur Specific [place] 1.010 Urine Protein 30 H Urine Glucose (UA) Normal Urine Ketones Negative Urine Occult Blood Negative Urine Nitrite Positive H Urine Bilirubin Negative Urine Urobilinogen Normal Ur Leukocyte Esterase 25 H Urine RBC 0 SEEN Urine WBC 10-25 SEEN Ur Squamous Epith Cells 0-5 SEEN Urine Bacteria 3+ Urine Mucus 0 SEEN Urine Test Negative - Rhythm Strip Rhythm Strip: Sinus Rhythm Rate: 95 Ectopy: None - EKG Initial EKG Interpretation: Sinus Rhythm, No Acute Injury Pattern Treatment: Morphine, GI Cocktail Repeat Eval: Improved but symptoms remain - Medical Decision Making Initial work-up remarkable for leukocytosis, anemia with hemoglobin of 9.6, urine suggestive of a possible infection, normal chest x-ray, normal EKG, but her heart rate was 100 at one point, so she would not qualify to rule out PE via the PERC rule. Therefore I had a d-dimer drawn which returned elevated nonspecifically, so CT angiography was performed of the chest, this was normal. On reexamination, she states she is still having abdominal discomfort and I reexamined her. There is no right lower quadrant tenderness. She has very mild tenderness in the left lower quadrant but the majority of it is epigastric only. Negative Edouadr's, and no right upper quadrant tenderness. She is tolerating oral liquids. Will prescribe her a 3-day course of Bactrim for the possible urinary infection, ranitidine for what may be gastritis, and referred her to a PCP for follow-up. Do not suspect acute appendicitis here. No symptoms of bleeding, no significant BUN elevation to suggest acute upper GI bleeding and she denies hematemesis. Certainly the chest discomfort could be musculoskeletal or esophageal in etiology, I attempted to treat both along with a dose of Toradol before discharge. She is comfortable going home with her ride. I think this is reasonable, encouraged to return for worsening symptoms. ED Disposition - Plan for ED Patient: Disposition: Home or Assisted Living Diagnosis: UTI (urinary tract infection), Pleuritic chest pain, Epigastric abdominal pain Instructions: CHEST PAIN, NonCardiac, EPIGASTRIC PAIN (Uncertain cause) Prescriptions: Sulfamethoxazole/Trimethoprim [Bactrim Ds Tablet] 1 ea PO BID #6 tab Prescription Printed Ranitidine HCl 1 tab PO BID #14 tab Prescription Printed Referrals: Anel James MD [STAFF PHYSICIAN] - 3-5 Days if not improving
[2019-05-21 04:54] LABS: Absolute Lymphocyte Count 5.36 X10^3/uL (0.83-4.51); Absolute Neutrophil Count 7.6 X10^3/uL (2.0-7.7); Basophil# 0.07 X10^3/uL; Basophil% 0.5 % (0-1); Eosinophil# 0.41 X10^3/uL; Eosinophils% 2.8 % (0-5); Hematocrit 29.8 % (37-47); Hemoglobin 9.6 g/dL (12.0-15.0); Lymphocyte # 5.36 X10^3/ul (4.0); Lymphocyte % 36.8 % (19-41); Mean Corp Hgb Conc 32.2 g/dL (32-36); Mean Corpuscular Hgb 24.6 pg (27.0-32.0); Mean Corpuscular Volume 76.4 fL (81-99); Mean Platelet Vol. 11.1 fl (6.2-12.0); Monocyte# 1.05 X10^3/uL; Monocyte% 7.2 % (0-10); NRBC Flagged by Analyzer 0 % (0-5); Neutrophil # 7.61 X10^3/uL (2.7-7.7); Neutrophil % 52.2 % (47-70); POSITIVE DIFFERENTIAL YES; POSITIVE MORPHOLOGY YES; Platelet Count 605 K/mm3 (150-450); RBC Distribution Width CV 20.3 % (11.6-14.6); RBC Distribution Width SD 56.4 fl (35.1-43.9); White Blood Count 14.6 K/mm3 (4.4-11.0)
[2019-05-21] MEDS: Mag Hydrox/Al Hydrox/Simeth 30 ML UDC PO (04:54)
[2019-05-21] MEDS: Morphine 4 MG/ML Syringe IV (04:54)
[2019-05-21] MEDS: Ondansetron 4 MG/2 ML Vial IV (04:54)
[2019-05-21 04:55] LABS: Differential Indicated SCAN CRITERIA MET
[2019-05-21 05:02] LABS: D-Dimer Quantitative (DVT/PE) 0.62 FEU/ug/m (0.27-0.49)
--- NOTE | 2019-05-21 05:05 | ED.RN ---
notified Dr. Franklin of d-dimer 0.62
[2019-05-21 05:09] LABS: ALB/GLOB Ratio 0.8 RATIO (0.9-2.4); AST(SGOT) 11 U/L (15-37); Alanine Aminotransfer ALT/SGPT 16 U/L (13-56); Albumin, Serum 3.4 g/dL (3.2-5.0); Alkaline Phosphatase 81 U/L (45-117); Anion Gap 9 (5-15); BUN 9 mg/dL (7-18); Calcium,Total 8.4 mg/dL (8.5-10.1); Chloride 107 mmol/L (98-107); EST Glomerular Filtration Rate 80 mL/min (>60); Est Glom Filt Rate - Afr Amer 97 mL/min (>60); Estimated Creatinine Clearance 85.38 ml/min; Globulin 4.1 g/dL (2.2-4.2); Glucose 123 mg/dL (74-106); Lipase 153 U/L (73-393); Potassium 3.5 mmol/L (3.5-5.1); Protein, Total 7.5 g/dL (6.4-8.2); Sodium Level 140 mmol/L (136-145)
[2019-05-21 05:21] LABS: Differential Comment SCANNED; Hypochromasia 2+; Macrocytosis 1+; Microcytosis 2+; Platelet Estimate MOD INC (ADEQ)
[2019-05-21 05:22] LABS: Ovalocyte 1+; Schistocytes RARE; Target Cells RARE
--- NOTE | 2019-05-21 05:42 | CT_ITS ---
STUDY: CTA CHEST REASON FOR EXAM: Female, 28 years old. Elevated d-dimer, chest pain and shortness of breath. RADIATION DOSAGE (If Supplied By Facility): CTDIvol = ( 9.92 ) mGy, DLP = ( 149.97 ) mGycm TECHNIQUE: The examination was performed with the intravenous administration of IV Isovue 370 [id number]. Post-processing of the angiographic images was performed, with multiplanar reformation and 3D reconstruction. Individualized dose optimization techniques were used for this CT. COMPARISON: None. FINDINGS: Normal enhancement of the main pulmonary artery and right and left pulmonary arteries. Normal enhancement of the bilateral peripheral pulmonary arteries. There is no demonstrated pulmonary embolism. Normal thoracic aorta and visualized great vessels. There is no demonstrated aortic dissection. Normal heart and pericardium. Normal mediastinum. Normal hilar regions. Normal visualized trachea and bronchi. The lungs are well expanded. Normal pulmonary parenchyma. Normal pleura. Normal chest wall structures. Normal osseous structures. Normal visualized upper abdomen. CT/CTA Chest W/WO Contrast IMPRESSION: Normal CTA chest examination, without a demonstrated pulmonary embolism or arterial dissection. Electronically Signed: Love Rivera MD at 6:41 EDT , Service support ,
[2019-05-21 05:44] LABS: Mucous, Urine 0 SEEN /hpf (<or=2+); Red Blood Cells-Urine 0 SEEN /hpf (0-5)
[2019-05-21 05:45] LABS: Color, Urine Yellow (Yellow); Glucose, Dipstick Normal (Normal); Ketone-Dipstick Negative (Negative); Leukocyte Esterase-Dipstick 25 /ul (Negative); Nitrite-Dipstick Positive (Negative); Occult Blood-Urine Negative /ul (Negative); Protein-Dipstick 30 mg/dl (Negative); Urine Bilirubin Dipstick Negative (Negative); Urine Clarity Sl. Cloudy (Clear); Urine Urobilinogen Normal (Normal)
[2019-05-21 05:48] LABS: Internal QC Validated? YES +Cl - CLEAR BKGD; Pregnancy, Urine Negative Negative
[2019-05-21 05:52] LABS: White Blood Cells 10-25 SEEN /hpf (0-5)
[2019-05-21 05:53] LABS: Bacteria 3+ /hpf (None Seen); Squamous Epithelial Cells - UA 0-5 SEEN /hpf (5-10)
[2019-05-21 06:20] VITALS: BP 124/98; PULSE 78; RESP 15; O2SAT 99
[2019-05-21 08:30] VITALS: BP 126/103; PULSE 89; RESP 16
== END 2019-05-21 08:30 | disposition home or self-care (01) ==
PROVIDERS: Emergency Provider Emergency Medicine
DX: N39.0 Urinary tract infection, site not specified (principal); R07.81 Pleurodynia; R10.13 Epigastric pain; F17.200 Nicotine dependence, unspecified, uncomplicated
CPT/HCPCS: 71045; 71275; 80053; 81001; 81025; 83690; 84484; 85025; 85379; 93005; 96361; 96374; 96375; 99285; J7030; Q9967; A4216; J2405